=== PATIENT | male | born 1990 | race American Indian/Alaskan Native ===

== ENCOUNTER 2018-09-04 19:22 | Inpatient (IN) | payer OTHER ==
[2018-09-04 19:58] VITALS: BMI 19.2
--- NOTE | 2018-09-04 20:12 | ED PDOC ---
Arrival/HPI - General Chief Complaint: Abdominal Pain Time Seen by Provider: 09/04/18 20:04 Historian: Patient - History of Present Illness Narrative History of Present Illness (Text): 09/04/18 20:12 Umer Arevalo is a 27 year old male, with no significant past medical history, who presents to the Emergency department complaining of abdominal pain. Patient states he has been experiencing intermittent, throbbing, RLQ pain for the past 2 days. Patient also reports some nausea initially, but denies any today. Patient also denies any fever, chills, chest pain, shortness of breath, vomiting, diarrhea, urinary symptoms, back pain, neck pain, headache, dizziness, or any other complaints. Symptom Onset: Gradual Symptom Course: Unchanged Activities at Onset: Light Context: Home Past Medical History - Provider Review Nursing Documentation Reviewed: Yes - Psychiatric Hx Psychophysiologic Disorder: No Hx Substance Use: No - Anesthesia Hx Anesthesia: Yes Family/Social History - Physician Review Nursing Documentation Reviewed: Yes Family/Social History: Unknown Family HX Smoking Status: Never Smoked Hx Alcohol Use: No Hx Substance Use: No Allergies/Home Meds Allergies/Adverse Reactions: Allergies No Known Allergies Allergy (Verified 09/04/18 20:00) Home Medications: Home Meds Medication Instructions Recorded Confirmed No Known Home Med 09/04/18 09/04/18 Review of Systems - Physician Review All systems were reviewed & negative as marked: Yes - Review of Systems Constitutional: Normal. absent: Fevers Eyes: Normal ENT: Normal Respiratory: Normal. absent: SOB, Cough Cardiovascular: Normal. absent: Chest Pain Gastrointestinal: Abdominal Pain, Nausea. absent: Diarrhea, Vomiting Genitourinary Male: Normal. absent: Dysuria, Hematuria, Urinary Output Changes Musculoskeletal: Normal. absent: Back Pain, Neck Pain Skin: Normal. absent: Rash Neurological: Normal. absent: Headache, Dizziness Endocrine: Normal Hemo/Lymphatic: Normal Psychiatric: Normal Physical Exam Vital Signs Reviewed: Yes Temperature: Afebrile Blood Pressure: Normal Pulse: Regular Respiratory Rate: Normal Appearance: Positive for: Well-Appearing, Non-Toxic, Comfortable Pain Distress: None Mental Status: Positive for: Alert and Oriented X 3 - Systems Exam Head: Present: Atraumatic, Normocephalic Pupils: Present: PERRL Extroacular Muscles: Present: EOMI Conjunctiva: Present: Normal Mouth: Present: Moist Mucous Membranes Neck: Present: Normal Range of Motion Respiratory/Chest: Present: Clear to Auscultation, Good Air Exchange. No: Respiratory Distress, Accessory Muscle Use Cardiovascular: Present: Regular Rate and Rhythm, Normal S1, S2. No: Murmurs Abdomen: Present: Tenderness (RLQ tenderness). No: Distention, Peritoneal Signs Back: Present: Normal Inspection Upper Extremity: Present: Normal Inspection. No: Cyanosis, Edema Lower Extremity: Present: Normal Inspection. No: Edema Neurological: Present: GCS=15, CN II-XII Intact, Speech Normal Skin: Present: Warm, Dry, Normal Color. No: Rashes Psychiatric: Present: Alert, Oriented x 3, Normal Insight, Normal Concentration Medical Decision Making ED Course and Treatment: 09/04/18 20:12 Impression: 27 year old male complaining of intermittent RLQ pain for 2 days. Plan: -- CT Abdomen and Pelvis with IV contrast -- Labs, lipase -- Urinalysis -- IV fluids -- Reassess and disposition Progress Notes: 09/04/18 21:45 CT Abdomen and Pelvis: LUNG BASES: The lung bases appear clear. No pleural effusions are seen. LIVER: Unremarkable. GALLBLADDER AND BILE DUCTS: The gallbladder appears within normal limits. No radioopaque gallstones are seen. No biliary ductal dilatation is evident. PANCREAS: Unremarkable. SPLEEN: Unremarkable. ADRENAL GLANDS: Unremarkable. KIDNEYS, URETERS, AND BLADDER: The kidneys appear within normal limits. There is no hydronephrosis or hydroureter. No urinary calculi are seen. The urinary bladder is normal in size and configuration. STOMACH AND BOWEL: Unremarkable appearance of the stomach. No evidence of bowel obstruction. No evidence suggesting enteritis. There is marked mucosal edematous wall thickening of the ascending colon compatible with severe colitis. Infectious or inflammatory etiologies are thought most likely. APPENDIX: The appendix is not identified with certainty. PERITONEUM: No free fluid. No free air. LYMPH NODES: No lymphadenopathy is evident. REPRODUCTIVE: Unremarkable as visualized. VASCULATURE: No evidence of abdominal aortic aneurysm. BONES: No aggressive appearing osseous lesion. No acute osseous pathology evident. IMPRESSION: 1. Evidence of severe colitis involving the ascending colon. 2. The appendix was not identified with certainty. Electronically signed on Sep 04, 2018 9:39:55 PM EST by: Paulo Menjivar M.D., ITA Certified By ABR & CBCCT Fellowship Trained MRI and CT Specialist 09/04/18 21:[address] Quiroz, who is aware and agrees with plan. Accepts pt in to his service. Pt will go to [facility] observation for abdominal pain and colitis. cmo & president notified. Requests Dr. Ariza/ on consult. 09/04/18 22:01 Case discussed with surgical forceps fabricator strand and binder controller, who is aware and will evaluate pt in ED. Case discussed with electromedical equipment technician strand and binder controller, who is aware and agrees with plan. - Lab Interpretations I have reviewed the lab results: Yes - RAD Interpretation Car Clerk Pullman: Radiologist - Scribe Statement The provider has reviewed the documentation as recorded by the Scribe Josy Mario Provider Scribe Attestation: All medical record entries made by the Scribe were at my direction and personally dictated by me. I have reviewed the chart and agree that the record accurately reflects my personal performance of the history, physical exam, medic al decision making, and the department course for this patient. I have also personally directed, reviewed, and agree with the discharge instructions and disposition. Disposition/Present on Arrival - Present on Arrival Any Indicators Present on Arrival: No History of DVT/PE: No History of Uncontrolled Diabetes: No Urinary Catheter: No History of Decub. Ulcer: No History Surgical Site Infection Following: None - Disposition Have Diagnosis and Disposition been Completed?: Yes Diagnosis: Abdominal pain, Colitis Disposition: HOSPITALIZED Disposition Time: 21:57 Patient Problems: Current Active Problems Problem Status Onset Abdominal pain Acute Colitis Acute Condition: STABLE
[2018-09-04] MEDS ORDERED: Sodium Chloride 0.9% 1,000 ML IV STA ×2 (20:27→22:01)
[2018-09-04 20:37] LABS: HEMOGLOBIN 13.4 g/dL (14.0-18.0); MEAN CORPUSCULAR HEMOGLOBIN 23.3 pg (25.0-35.0); MEAN CORPUSCULAR HGB CONC 33.3 g/dl (31.0-37.0); MEAN PLATELET VOLUME 10.5 fl (7.0-11.0); RBC 5.76 {null, 10^6/uL} (3.5-6.1); RED CELL DISTRIBUTION WIDTH 14.2 % (11.5-14.5)
[2018-09-04 20:47] LABS: ALB/GLOB RATIO 1.1 (1.1-1.8); ALBUMIN 4.8 g/dL (3.0-4.8); ALT/SGPT 6 U/L (7-56); AST/SGOT 22 U/L (17-59); BLOOD UREA NITROGEN 15 mg/dL (7-21); CALCIUM 9.7 mg/dL (8.4-10.5); GFR NON-AFRICAN AMERICAN > 60; LIPASE 66 U/L (23-300)
[2018-09-04] MEDS ORDERED: Iohexol 350 MG/100 ML VIAL ONE (20:53)
[2018-09-04] MEDS ORDERED: metroNIDAZOLE IV 500 mg/100 ml 500 MG/100 ML BAG IV STA (21:48)
[2018-09-04] MEDS ORDERED: cefTRIAXone 1 gm 1 GM/100 ML BAG IV STA (21:48)
--- NOTE | 2018-09-04 23:31 | CP.PCM.CON ---
History of Present Illness - History of Present Illness History of Present Illness: 27M with no significant past medical history presents to [facility] ED with complaints of abdominal pain. Patient states sudden onset of abdominal pain approximately 2 days ago. At which time he states he rated the pain as an 8/10 and it was located along lower abdominal region. Patient states pain lessened as time went by. Reports he initially had nausea but now it is resolved. Patent reports eating [employer] and ramen noodles today with no exacerbation of pain. He denies fever/chills, chest pain, shortness of breath, nausea/vomiting, dysuria. Denies sick contacts. Review of vitals is normal. PMHx: none PSurgHx: none Allergies: NKDA Soc Hx: Denies smoking. Drinks wine every other weekend. No illicit drug use. Review of Systems - Review of Systems All systems: reviewed and no additional remarkable complaints except Review of Systems: except as stated in HPI Past Patient History - Past Social History Smoking Status: Never Smoked - PSYCHIATRIC Hx Psychophysiologic Disorder: No Hx Substance Use: No - SURGICAL HISTORY Hx Surgeries: No - ANESTHESIA Hx Anesthesia: Yes Meds Allergies/Adverse Reactions: Allergies Allergy/AdvReac Type Severity Reaction Status Date / Time No Known Allergies Allergy Verified 09/04/18 20:00 - Medications Medications: Current Medications Sodium Chloride (Sodium Chloride 0.9%) 1,000 mls @ 100 mls/hr IV .Q10H STA Stop: 09/05/18 08:00 Last Admin: 09/04/18 22:22 Dose: 100 mls/hr Physical Exam - Constitutional Appears: No Acute Distress - Head Exam Head Exam: NORMOCEPHALIC - Eye Exam Eye Exam: EOMI, Normal appearance - ENT Exam ENT Exam: Mucous Membranes Moist - Respiratory Exam Respiratory Exam: NORMAL BREATHING PATTERN - Cardiovascular Exam Cardiovascular Exam: +S1, +S2. absent: Tachycardia - GI/Abdominal Exam GI & Abdominal Exam: Soft, Tenderness. absent: Distended, Firm, Guarding Additional comments: No peritoneal signs RUQ tenderness RLQ tenderness Generalized lower abdominal tenderness +rebound tenderness - Neurological Exam Neurological exam: Alert, Oriented x3 - Psychiatric Exam Psychiatric exam: Normal Mood - Skin Skin Exam: Dry, Intact, Warm Results - Vital Signs Recent Vital Signs: Last Vital Signs Temp 97.9 F 09/04/18 20:22 Pulse 78 09/04/18 20:22 Resp 18 09/04/18 20:22 BP 126/62 09/04/18 20:22 Pulse Ox 100 09/04/18 20:22 - Labs Result Diagrams: 09/05/18 07:00 09/05/18 07:00 Labs: Laboratory Results - last 24 hr 09/04/18 09/04/18 20:08 20:08 WBC 8.0 RBC 5.76 Hgb 13.4 L Hct 40.3 L MCV 70.0 L MCH 23.3 L MCHC 33.3 RDW 14.2 Plt Count 203 MPV 10.5 Sodium 139 Potassium 3.8 Chloride 97 L Carbon Dioxide 30 Anion Gap 16 BUN 15 Creatinine 0.8 Est GFR ( Amer) > 60 Est GFR (Non-Af Amer) > 60 Random Glucose 126 H Calcium 9.7 Total Bilirubin 1.3 AST 22 ALT 6 L Alkaline Phosphatase 42 Total Protein 9.0 H Albumin 4.8 Globulin 4.2 Albumin/Globulin Ratio 1.1 Lipase 66 Assessment & Plan - Assessment and Plan (Free Text) Assessment: 27M with abdominal pain x2 days likely 2/2 appendicitis vs colitis Plan: NPO IVF ABx Analgesic prn Anti-emetic prn Alvardo Score 5/10, possible appendicitis Recommend CT Abd & Pelvis w/ PO contrast to r/o appendicitis as it is difficult to evaluate small and large bowel with lack of PO contrast Will follow Further recs per Dr. Hector
[2018-09-04 23:48] LABS: PH,URINE 7.5 (4.7-8.0); URINE BILIRUBIN NEGATIVE (NEGATIVE); URINE BLOOD MODERATE (NEGATIVE); URINE GLUCOSE (UA) NEGATIVE (NEGATIVE); URINE LEUKOCYTE ESTERASE NEGATIVE Leu/uL (NEGATIVE); URINE PROTEIN NEGATIVE mg/dL (<30 mg/dL)
[2018-09-04 23:51] LABS: URINE APPEARANCE CLEAR (CLEAR); URINE COLOR YELLOW (YELLOW)
[2018-09-04] MEDS ORDERED: Morphine 2 mg/ml ISec IVP PRN (23:55)
--- NOTE | 2018-09-05 | CP.PCM.HP ---
History of Present Illness - History of Present Illness History of Present Illness: H&P for Dr. Quiroz's service 27 yo male with no past medical history presents with 2 days lower right quadrant abd pain. Patient describes the pain as crampy pain worse on onset 2 days ago. Since then the pain has been intermittent, worse with movement. He denies any abnormal food consumption or pain with eating. He did not taking any over the counter medications to help with the pain. He denies fevers, chills, n/v, diarrhea, constipation, dysuria, hematuria, chest pain, sob. 12 point ROS negative except as stated PMH: denies PSH: denies social history: denies smoking, or illicit drug use, social alcohol use allergy: nkda home meds: none family history: Mother HTN Present on Admission - Present on Admission Any Indicators Present on Admission: No Review of Systems - Review of Systems All systems: reviewed and no additional remarkable complaints except Past Patient History - Past Social History Smoking Status: Never Smoked - PSYCHIATRIC Hx Psychophysiologic Disorder: No Hx Substance Use: No - SURGICAL HISTORY Hx Surgeries: No - ANESTHESIA Hx Anesthesia: Yes Meds Allergies/Adverse Reactions: Allergies Allergy/AdvReac Type Severity Reaction Status Date / Time No Known Allergies Allergy Verified 09/04/18 20:00 Physical Exam - Constitutional Appears: Well, No Acute Distress - Head Exam Head Exam: ATRAUMATIC, NORMAL INSPECTION, NORMOCEPHALIC - Eye Exam Eye Exam: EOMI, Normal appearance - ENT Exam ENT Exam: Mucous Membranes Moist, Normal Exam. absent: Mucous Membranes Dry - Neck Exam Neck exam: Positive for: Full Rom, Normal Inspection. Negative for: Tenderness - Respiratory Exam Respiratory Exam: Clear to Auscultation Bilateral, NORMAL BREATHING PATTERN. absent: Accessory Muscle Use, Chest Wall Tenderness, Decreased Breath Sounds, Rales, Rhonchi, Wheezes, Respiratory Distress - Cardiovascular Exam Cardiovascular Exam: REGULAR RHYTHM, RRR, +S1, +S2. absent: Bradycardia, Tachycardia, Diastolic murmur, Systolic Murmur - GI/Abdominal Exam GI & Abdominal Exam: Guarding (mild RLQ), Normal Bowel Sounds, Soft, Tenderness (RLQ). absent: Distended, Firm, Hernia, Mass, Organomegaly, Rebound - Extremities Exam Extremities exam: Positive for: full ROM, normal inspection. Negative for: calf tenderness, pedal edema, tenderness - Back Exam Back exam: NORMAL INSPECTION. absent: CVA tenderness (L), CVA tenderness (R), paraspinal tenderness, vertebral tenderness - Neurological Exam Neurological exam: Alert, CN II-XII Intact, Oriented x3 - Psychiatric Exam Psychiatric exam: Normal Affect, Normal Mood - Skin Skin Exam: Dry, Intact, Normal Color, Warm Results - Vital Signs Recent Vital Signs: Last Vital Signs Temp 97.9 F 09/04/18 20:22 Pulse 78 09/04/18 20:22 Resp 18 09/04/18 20:22 BP 126/62 09/04/18 20:22 Pulse Ox 100 09/04/18 20:22 - Labs Result Diagrams: 09/04/18 20:08 09/04/18 20:08 Labs: Laboratory Results - last 24 hr 09/04/18 09/04/18 09/04/18 20:08 20:08 23:02 WBC 8.0 RBC 5.76 Hgb 13.4 L Hct 40.3 L MCV 70.0 L MCH 23.3 L MCHC 33.3 RDW 14.2 Plt Count 203 MPV 10.5 Sodium 139 Potassium 3.8 Chloride 97 L Carbon Dioxide 30 Anion Gap 16 BUN 15 Creatinine 0.8 Est GFR ( Amer) > 60 Est GFR (Non-Af Amer) > 60 Random Glucose 126 H Calcium 9.7 Total Bilirubin 1.3 AST 22 ALT 6 L Alkaline Phosphatase 42 Total Protein 9.0 H Albumin 4.8 Globulin 4.2 Albumin/Globulin Ratio 1.1 Lipase 66 Urine Color Yellow Urine Appearance Clear Urine pH 7.5 Ur Specific Witter <= 1.005 Urine Protein Negative Urine Glucose (UA) Negative Urine Ketones Negative Urine Blood Moderate H Urine Nitrate Negative Urine Bilirubin Negative Urine Urobilinogen 1.0 H Ur Leukocyte Esterase Negative Assessment & Plan - Assessment and Plan (Free Text) Assessment: 27 yo male with no past medical history presents with 2 days lower right quadrant abd pain. Plan: abd pain - possibly due to colitis vs appendicitis - CT abd/pel with IV contrast showed Evidence of severe colitis involving the ascending colon. The appendix was not identified with certainty. - ESR, CRP - follow up blood cultures - abd Ultrasound - zosyn IV abx - npo - continue IVF NS @100 - GI consulted, Dr. Ariza - surgical consult - GI ppx protonix low hemaglobin - repeat CBC in AM - stool for occult blood case discussed with Dr. Quiroz
[2018-09-05 00:20] LABS: URINE BACTERIA FEW /hpf; URINE EPITHELIAL CELLS 0 - 2 /hpf (0-5); URINE WBC 0 - 2 /hpf (0-6)
[2018-09-05] MEDS ORDERED: Barium Sulfate Susp 2.1% w/v, 2.0% w/w 450 mL Bottle PO ONE (00:36)
[2018-09-05 07:30] LABS: BASO # 0.02 {null, K/mm3} (0.0-2.0); BASO % 0.3 % (0.0-3.0); EOS # 0.2 (0.0-0.7); HEMOGLOBIN 11.8 g/dL (14.0-18.0); LYMPH # 1.2 (1.2-3.4); LYMPH % 20.8 % (22.0-35.0); MEAN CELL VOLUME 70.3 fl (80.0-105.0); MEAN CORPUSCULAR HEMOGLOBIN 22.5 pg (25.0-35.0); MEAN PLATELET VOLUME 10.2 fl (7.0-11.0); MONO # 0.8 (0.1-0.6); MONO % 13.5 % (1.0-6.0); RBC 5.25 {null, 10^6/uL} (3.5-6.1); RED CELL DISTRIBUTION WIDTH 14.1 % (11.5-14.5); WHITE BLOOD COUNT 5.8 {null, 10^3/uL} (4.5-11.0)
[2018-09-05 07:34] LABS: ALBUMIN 3.9 g/dL (3.0-4.8); ALT/SGPT 10 U/L (7-56); AST/SGOT 22 U/L (17-59); BLOOD UREA NITROGEN 12 mg/dL (7-21); CALCIUM 8.9 mg/dL (8.4-10.5); GFR NON-AFRICAN AMERICAN > 60; INR 1.29; PARTIAL THROMBOPLASTIN TIME 29.8 Seconds (26.9-38.3); PROTHROMBIN TIME 14.6 SECONDS (9.4-12.5)
--- NOTE | 2018-09-05 08:41 | CT ---
Date of service: 09/04/2018 PROCEDURE: CT Abdomen and Pelvis with contrast HISTORY: right lower abdominal pain COMPARISON: None available. TECHNIQUE: Contrast dose: 100 mL Omnipaque 350 IV Radiation dose: Total exam DLP = 264.79 mGy-cm. This CT exam was performed using one or more of the following dose reduction techniques: Automated exposure control, adjustment of the mA and/or kV according to patient size, and/or use of iterative reconstruction technique. FINDINGS: LOWER THORAX: No visible consolidation, pleural effusion, or pneumothorax. LIVER: Unremarkable. GALLBLADDER AND BILE DUCTS: Unremarkable. PANCREAS: Unremarkable. SPLEEN: Unremarkable. ADRENALS: Unremarkable. KIDNEYS AND URETERS: The kidneys enhance symmetrically. No hydronephrosis or obstructing calculus identified. VASCULATURE: No aortic aneurysm. No atherosclerotic calcification or mural plaque present. BOWEL: Ingested debris within an incompletely distended stomach. Lack of oral contrast limits evaluation for bowel pathology. Bowel loops appear within normal limits of caliber without evidence of obstruction. Markedly thick-walled abnormal appearance of the right colon/cecum. APPENDIX: The appendix is not identified. PERITONEUM: No significant free fluid. No definite free air. LYMPH NODES: Mesenteric/pericecal adenopathy, difficult to assess due to lack of oral contrast and paucity of intra-abdominal/intrapelvic fat. BLADDER: Unremarkable. REPRODUCTIVE: Unremarkable. BONES: No acute osseous abnormality is detected. OTHER FINDINGS: None. IMPRESSION: Findings as described above appear consistent with a severe colitis involving the right colon. The appendix is not identified. Mesenteric/pericecal adenopathy. Additional findings as above. Preliminary impression was provided by [employer].
[2018-09-05 08:56] LABS: BILIRUBIN,DIRECT 0.2 mg/dL (0.0-0.4)
--- NOTE | 2018-09-05 11:05 | CT ---
PROCEDURE: CT Abdomen and Pelvis without IV contrast. HISTORY: r/o appendicitis COMPARISON: CT abdomen and pelvis with contrast performed 09/04/18 TECHNIQUE: Contiguous axial images of the abdomen and pelvis. Oral contrast was administered. No IV contrast given. Coronal and Sagittal reformats generated and reviewed. Radiation dose: Total exam DLP = 263.55 mGy-cm. This CT exam was performed using one or more of the following dose reduction techniques: Automated exposure control, adjustment of the mA and/or kV according to patient size, and/or use of iterative reconstruction technique. FINDINGS: There is limited evaluation of the solid organs without the administration of IV contrast. LOWER THORAX: No visible consolidation, pleural effusion, or pneumothorax. Visualized portions of the heart appear within normal limits of size. LIVER: Unremarkable unenhanced appearance. GALLBLADDER AND BILE DUCTS: Unremarkable unenhanced appearance. PANCREAS: Unremarkable unenhanced appearance. SPLEEN: Unremarkable unenhanced appearance. ADRENALS: Unremarkable unenhanced appearance. KIDNEYS AND URETERS: No hydronephrosis or obstructing renal calculus. BLADDER: Distended urinary bladder, otherwise grossly unremarkable. REPRODUCTIVE: Unremarkable. APPENDIX: The presumed appendix appears within normal limits of caliber. BOWEL: The stomach is nondistended. Bowel loops appear within normal limits of caliber without evidence of obstruction. Markedly thick-walled abnormal appearance of the right colon/cecum. PERITONEUM: No significant free fluid. No definite free air. LYMPH NODES: Mesenteric/pericecal adenopathy, difficult to assess due to paucity of intra-abdominal/intrapelvic fat. VASCULATURE: No aortic aneurysm. BONES: No acute osseous abnormality is detected. OTHER FINDINGS: None. IMPRESSION: Findings as described above appear consistent with a severe colitis involving the right colon. The presumed appendix appears within normal limits of caliber. Mesenteric/pericecal adenopathy, difficult to assess due to paucity of intra-abdominal/intrapelvic fat.
--- NOTE | 2018-09-05 12:00 | CON ---
DATE OF CONSULTATION: 09/05/2018 GASTROENTEROLOGY CONSULTATION REQUESTING PHYSICIAN: Dr. Quiroz. REASON FOR CONSULTATION: I have been asked to see this 27-year-old male, who comes to the hospital with 2 days of right lower quadrant abdominal pain described as crampy. The pain is steadily improved since his hospitalization. He describes the pain as colicky in nature and worse with certain movements. He denies any ingestion of unusual foods, recent travel illicit drug use. He did have an episode of nausea and vomiting on the first day of abdominal pain, but denies any diarrhea. He denies rectal bleeding. CT scan of the abdomen and pelvis performed in the emergency room revealed mural thickening of the ascending colon with some pericolonic mesenteric streaking. PAST MEDICAL HISTORY: Unremarkable. PAST SURGICAL HISTORY: Unremarkable. SOCIAL HISTORY: He denies cigarette smoking or alcohol use. FAMILY HISTORY: Noncontributory. REVIEW OF SYSTEMS: Fourteen-point review of systems is notable for right lower quadrant abdominal pain, nausea, and vomiting. MEDICATIONS AT HOME: None. PHYSICAL EXAMINATION: GENERAL: Well-developed male, lying in bed, in no distress. VITAL SIGNS: Reveal a temperature of 97.7, blood pressure 122/65, heart rate of 70. HEENT: Reveal sclerae to be white. Conjunctivae pink. NECK: Supple. CHEST: Lungs are clear. HEART: Exam reveals regular rate and rhythm. ABDOMEN: Soft. Mild right lower quadrant tenderness. No rebound or guarding. EXTREMITIES: Show no edema. LABORATORY DATA: Reveal white blood cell count 5.8, hemoglobin 11.8, platelet count of 181,000, sed rate 28. Chemistries reveal normal electrolytes. IMPRESSION: A 27-year-old male with 2 days of right lower quadrant abdominal pain associated with an episode of nausea, vomiting. No diarrhea. No recent travel with a CT scan of the abdomen and pelvis showing mural thickening of the ascending colon. This appears to be a right-sided colitis. Clinically, the patient does not appear toxic. RECOMMENDATIONS: We will start the patient on clear liquid diet. Clinically, he is improving. If tolerated, he can be advanced to a low-residue diet, would continue broad-spectrum antibiotics for now. If the patient continues to improve, he can be discharged home with outpatient followup. Michael Ariza MD [facility] # [id number]
[2018-09-05] MEDS: Piperacillin/Tazobact 3.375 gm 100 ML IVPB SCH ×2 (14:59→23:17)
[2018-09-05] MEDS: Lactated Ringer's 1,000 ML IV SCH (18:48)
[2018-09-05] MEDS: metroNIDAZOLE IV 500 mg/100 ml 500 MG/100 ML BAG IVPB SCH (21:53)
[2018-09-05 22:26] LABS: BARBITURATES, UR NEGATIVE (NEGATIVE); BENZODIAZEPINES, UR NEGATIVE (NEGATIVE); OPIATES, UR NEGATIVE (NEGATIVE); PHENCYCLIDINE, UR NEGATIVE (NEGATIVE)
--- NOTE | 2018-09-06 05:05 | PN ---
DATE: 09/05/2018 LOCATION: The patient is seen in room 566, bed 1. SUBJECTIVE: The patient was seen with the patient's mother. According to the patient's nurses, the nurses have found the patient to have bug on his arms and the patient is isolated at present for a suspicious of a bedbug. The patient was seen and examined with all the personal protective equipment with head covering mask, gloves and protective gowns. The patient's mother is at bedside. The patient is seen lying in the bed. Abdominal pain has subsided. PHYSICAL EXAMINATION: VITAL SIGNS: T-max 97.8, heart rate 70, blood pressure 109/71, 122/65, respirations 18, O2 sat 97% to 100%. HEENT: Head: Normocephalic, atraumatic. HEENT examination shows pinkish pale conjunctivae. Anicteric sclerae. No oropharyngeal lesion. NECK: No neck rigidity. CHEST: Kyphosis. LUNGS: No crackles, rales or wheezing. CARDIOVASCULAR: S1, S2, regular rhythm. Unable to appreciate any murmur, gallop or rub. ABDOMEN: Soft. Positive bowel sound, positive right lower quadrant, suprapubic, right upper quadrant tenderness, right periumbilical tenderness. No costovertebral angle tenderness. GENITALIA: Male. RECTAL: Deferred. EXTREMITIES: No pitting edema, no calf tenderness, no Homans' sign. NEUROLOGICAL: The patient is alert, awake, oriented x3. Cranial nerves II through XII intact. Gait examination is not tested. VASCULAR: Palpable pulses. MUSCULOSKELETAL: Body mass index of 19.3. DIAGNOSTICS: CBC shows a hemoglobin and hematocrit 11.8 and 36.9. CMP shows a C-reactive protein of 84.2. Urine drug screen negative. IMPRESSION: 1. Right lower quadrant abdominal pain. 2. Questionable appendicitis versus possible colitis. 3. Microcytic anemia. 4. Mildly elevated erythrocyte sedimentation rate. 5. Elevated C-reactive protein of 84. 6. Microscopic hematuria. 7. Bacteriuria. 8. Cecal and right colonic severe colitis with mesenteric and pericecal adenopathy. PLAN: At this time, the patient has been ordered repeat labs for the morning. The patient seen by ethylbenzene oxidizer and Surgery. Their recommendations reviewed. The patient has been ordered repeat labs for the morning. Urine drug screen ordered. Current consultation, Surgery and Gastroenterology. The patient has been ordered calamine lotion for his possible bed bugs noted on the body by the nurses. The patient is started on Flagyl 500 IV every 8 hours, Ringer's lactate at 100 mL an hour, morphine 1 mg IV every 6 hours p.r.n., Protonix 40 IV every 12 hours, Zosyn 3.375 g IV every 8 hours, Protonix 40 IV every 12 hours, Tylenol 650 mg p.o. suppository every 6 hours p.r.n., Zofran 4 mg IV every 4 hours p.r.n. The patient has been ordered an abdominal ultrasound by Neurology. The patient is started on liquid diet by Gastroenterology. The patient has been ordered GI and DVT prophylaxis. Lab data for anemia has been ordered. The patient has been updated about his condition, diagnosis at length. The patient's mother is present in the room. The patient's mother is also aware of the patient's condition, diagnosis, test results and recommendation by all the physicians explained to the patient at length and all questions concerned answered. Dictated and electronically signed, not read. Sarath Quiroz MD
[2018-09-06] MEDS: metroNIDAZOLE IV 500 mg/100 ml 500 MG/100 ML BAG IVPB SCH ×3 (05:52→21:16)
[2018-09-06] MEDS: Piperacillin/Tazobact 3.375 gm 100 ML IVPB SCH ×3 (06:46→22:24)
[2018-09-06 07:44] LABS: BASO # 0.02 {null, K/mm3} (0.0-2.0); BASO % 0.5 % (0.0-3.0); EOS # 0.2 (0.0-0.7); EOS % 5.6 % (1.5-5.0); HEMOGLOBIN 11.8 g/dL (14.0-18.0); LYMPH # 0.9 (1.2-3.4); LYMPH % 21.8 % (22.0-35.0); MEAN CELL VOLUME 70.7 fl (80.0-105.0); MEAN CORPUSCULAR HEMOGLOBIN 22.8 pg (25.0-35.0); MEAN CORPUSCULAR HGB CONC 32.2 g/dl (31.0-37.0); MEAN PLATELET VOLUME 10.5 fl (7.0-11.0); MONO # 0.7 (0.1-0.6); MONO % 15.1 % (1.0-6.0); RBC 5.18 {null, 10^6/uL} (3.5-6.1); RED CELL DISTRIBUTION WIDTH 14.2 % (11.5-14.5); WHITE BLOOD COUNT 4.3 {null, 10^3/uL} (4.5-11.0)
[2018-09-06 07:53] LABS: IRON 96 ug/dL (45-180)
[2018-09-06 08:02] LABS: % IRON SATURATION 33 % (20-55); TOTAL IRON BINDING CAPACITY 289 ug/dL (261-462)
[2018-09-06 08:10] LABS: ALB/GLOB RATIO 1.1 (1.1-1.8); ALBUMIN 3.9 g/dL (3.0-4.8); ALT/SGPT 13 U/L (7-56); AST/SGOT 24 U/L (17-59); BILIRUBIN,DIRECT 0.1 mg/dL (0.0-0.4); BLOOD UREA NITROGEN 7 mg/dL (7-21); CALCIUM 9.2 mg/dL (8.4-10.5); GFR NON-AFRICAN AMERICAN > 60
[2018-09-06] MEDS: Calamine-Zinc Oxide Lotion (120 ml) TOP SCH (10:00)
--- NOTE | 2018-09-06 12:16 | PN ---
DATE: 09/06/2018 SUBJECTIVE: The patient was found to have bed bugs. He is in isolation. He states that he feels better. The abdominal pain is much less. He is tolerating clear liquid diet. He denies any nausea, vomiting. OBJECTIVE: VITAL SIGNS: Reveal temperature of 97.8, blood pressure 104/65, heart rate of 62. HEENT: Reveal sclerae to be white. Conjunctivae pink. NECK: Supple. CHEST: Lungs are clear. HEART: Reveals a regular rate and rhythm. ABDOMEN: Soft. Mild right lower quadrant tenderness. No rebound, no guarding. EXTREMITIES: Show no edema. LABORATORY DATA: Reveal white blood cell count 4.3, hemoglobin 11.8. Chemistries reveal normal electrolytes. IMPRESSION: Right-sided colitis, the etiology unclear. RECOMMENDATIONS: 1. We will advance the patient to a soft bland diet. If tolerated, he can be discharged home with outpatient followup. 2. Check HIV antibody. 3. Continue close followup. Michael Ariza MD
--- NOTE | 2018-09-06 12:28 | US ---
HISTORY: abd pain LRQ COMPARISON: CT abdomen pelvis performed 09/05/18 without IV contrast TECHNIQUE: Sonographic evaluation of the abdomen. FINDINGS: LIVER: Measures 13.6 cm in sagittal dimension. Echogenic liver may be seen in setting of hepatic parenchymal disease or fatty infiltration. No focal hepatic mass identified. The main portal vein appears patent with normal directional flow. No intrahepatic bile duct dilatation. GALLBLADDER: No gallstones. No gallbladder wall thickening. Negative sonographic Harmon's sign as assessed by the hematology technician. COMMON BILE DUCT: Measures 5 mm. PANCREAS: Not well visualized. RIGHT KIDNEY: Measures 12.4 x 4.2 x 6.0 cm. No obstructing calculus or hydronephrosis identified. LEFT KIDNEY: Measures 10.8 x 6.8 x 6.1 cm. No obstructing calculus or hydronephrosis identified. SPLEEN: Measures approximately 8.7 cm. AORTA: Limited views appear unremarkable. IVC: Limited views appear unremarkable. OTHER FINDINGS: None. IMPRESSION: Echogenic liver may be seen in setting of hepatic parenchymal disease or fatty infiltration.
[2018-09-06 13:48] LABS: FERRITIN 89.3 ng/mL
[2018-09-06] MEDS: Lactated Ringer's 1,000 ML IV SCH (22:25)
--- NOTE | 2018-09-07 03:03 | PN ---
DATE: 09/06/2018 LOCATION: The patient was seen in room 566, bed 1. SUBJECTIVE: The patient was still in quarantine isolation room due to possible bed bug infestation, bed bugs noted on the patient's body. According to the patient's nurse, Hussein, the patient was given complete bed bug infestation treatment with a complete bath. The patient's clothing has been sealed in contaminated bag which was placed in the patient's room. The patient is presently in isolation room. The patient is seen, examined. The patient is seen lying in the bed. The patient is comfortable. The patient stated that he tolerated the diet ordered by the Gastroenterology during the lunch. PHYSICAL EXAMINATION: VITAL SIGNS: T-max 97.8; heart rate 59, 78, 74, 62, 87; blood pressure 121/66, 122/65, 109/71, 104/65, 112/66; respirations 20; O2 sat 100%. HEENT: The patient's head examination is normocephalic, atraumatic. HEENT examination shows pinkish pale conjunctivae. Anicteric sclerae. No oropharyngeal lesion. No neck rigidity. CHEST: Symmetrical. LUNG: Shows no audible crackle, rales, or wheezing. CARDIOVASCULAR: S1, S2. Regular rhythm. No audible murmur, gallop, or rub. ABDOMEN: Soft. Positive bowel sounds. Mild right upper quadrant tenderness and right periumbilical tenderness. Decreased right lower quadrant tenderness. No hepatosplenomegaly palpable. GENITALIA: Male. RECTAL: Deferred. EXTREMITIES: Show no pitting edema, no calf tenderness, no Simran's signs. MUSCULOSKELETAL: Shows body mass index of 19.3. NEUROLOGIC: Cranial nerves II through XII intact. Gait examination is independent. DIAGNOSTICS: On 09/06/2018, WBC 4.3, hemoglobin and hematocrit 11.8 and 36.6, MCV 70.7, platelet 197. Chemistry is within normal limit except for total bili of 1.4. Rest of the LFTs are normal. Urine drug screen is negative. Blood cultures no growth. IMPRESSION: 1. Right-sided cecal and right ascending colon colitis, etiology unclear. 2. Leukopenia. 3. Microcytic anemia. 4. Lymphopenia. 5. Monocytosis. 6. Mildly elevated erythrocyte sedimentation rate of 28. 7. Elevated C-reactive protein of 85. 8. Microscopic hematuria, pyuria, bacteriuria. 9. Right colonic, right cecal severe colitis. 10. Mesenteric pericecal adenopathy. 11. Hepatic steatosis and echogenic liver with fatty infiltration and hepatic parenchymal disease. PLAN: At this time, the patient is started on altered GI hepatic diet. The patient has been ordered repeat labs for the morning. The patient has been ordered HIV, hemoglobin electrophoresis, sickle cell EBC. CURRENT CONSULTATION: Gastroenterology and Surgery. CURRENT MEDICATIONS: Calamine lotion, Flagyl 500 mg IV every 8 hours, Ringer's lactate 100 mL an hour, morphine 1 mg IV every 6 hours p.r.n., Protonix 40 mg IV every 12 hours, Tylenol suppository p.o. every 6 hours p.r.n., Zosyn 3.375 IV every 8 hours, Zofran 4 IV every 4 hours. Incentive spirometry, out of bed to chair has been ordered. The patient has been updated about his condition, diagnosis, test results, recommendation by all the physicians involved in the care of the patient. The patient is awaiting further GI evaluation, recommendation, and clearance for discharge. The patient is also advised outpatient close followup with the Medicine and Gastroenterology, further investigation and diagnostic therapeutic intervention which the patient acknowledged to understand. Dictated and electronically signed, not read. Sarath Quiroz MD
[2018-09-07] MEDS: metroNIDAZOLE IV 500 mg/100 ml 500 MG/100 ML BAG IVPB SCH ×3 (05:42→21:14)
[2018-09-07] MEDS: Piperacillin/Tazobact 3.375 gm 100 ML IVPB SCH ×3 (06:55→22:27)
[2018-09-07 08:23] LABS: BASO # 0.02 {null, K/mm3} (0.0-2.0); BASO % 0.5 % (0.0-3.0); EOS # 0.3 (0.0-0.7); EOS % 6.7 % (1.5-5.0); HEMOGLOBIN 11.6 g/dL (14.0-18.0); LYMPH # 1.1 (1.2-3.4); LYMPH % 27.5 % (22.0-35.0); MEAN CELL VOLUME 70.1 fl (80.0-105.0); MEAN CORPUSCULAR HEMOGLOBIN 22.7 pg (25.0-35.0); MEAN CORPUSCULAR HGB CONC 32.4 g/dl (31.0-37.0); MEAN PLATELET VOLUME 10.2 fl (7.0-11.0); MONO # 0.5 (0.1-0.6); MONO % 11.8 % (1.0-6.0); RBC 5.11 {null, 10^6/uL} (3.5-6.1); WHITE BLOOD COUNT 3.9 {null, 10^3/uL} (4.5-11.0)
[2018-09-07 08:26] LABS: HEPATITIS B SURFACE AG Negative (NEGATIVE)
[2018-09-07 08:32] LABS: HEPATITIS A IGM NEGATIVE (NEGATIVE); HEPATITIS B CORE AB NEGATIVE (NEGATIVE)
[2018-09-07 08:43] LABS: HEPATITIS C ANTIBODY NEGATIVE (NEGATIVE)
[2018-09-07 08:49] LABS: ALB/GLOB RATIO 1.1 (1.1-1.8); ALBUMIN 3.8 g/dL (3.0-4.8); ALT/SGPT 11 U/L (7-56); AST/SGOT 16 U/L (17-59); BILIRUBIN,DIRECT 0.2 mg/dL (0.0-0.4); BLOOD UREA NITROGEN 11 mg/dL (7-21); CALCIUM 9.1 mg/dL (8.4-10.5); GFR NON-AFRICAN AMERICAN > 60
[2018-09-07] MEDS: Calamine-Zinc Oxide Lotion (120 ml) TOP SCH (09:18)
[2018-09-07 10:32] LABS: MCH 23.3 pg (27.0-33.0); MCV 72.6 fL (80.0-100.0)
--- NOTE | 2018-09-07 13:21 | PN ---
DATE: 09/07/2018 SUBJECTIVE: The patient is walking around in his room comfortably. He is tolerating solid food. He denies any further right lower quadrant abdominal pain. He denies diarrhea. He denies nausea or vomiting. OBJECTIVE: VITAL SIGNS: Reveal temperature of 98.2, blood pressure 114/76, heart rate of 62. HEENT: Reveal sclerae to be white. Conjunctivae pink. NECK: Supple. CHEST: Reveal lungs to be clear. HEART: Reveals a regular rate and rhythm. ABDOMEN: Soft, nontender. No mass. EXTREMITIES: Show no edema. Laboratory data reveal white blood cell count 3.9, hemoglobin 11.6. Chemistries reveal normal electrolytes. Hepatitis serology is negative. IMPRESSION: This is a 27-year-old male admitted to the hospital with right lower quadrant pain, found to have mural thickening of the ascending colon consistent with colitis of the ascending colon. I suspect that this is a self-limited colitis. RECOMMENDATIONS: The patient can be discharged home with outpatient followup. He will need a elective colonoscopy. Michael Ariza MD
[2018-09-07 16:55] LABS: SICKLE CELL SCREEN Positive (Negative)
[2018-09-07 21:17] VITALS: RESP 18; O2SAT 100
--- NOTE | 2018-09-07 23:15 | PN ---
DATE: 09/07/2018 SUBJECTIVE: The patient is seen in room 566, bed 1. The patient is still in isolation because of the possible bed bugs noted on the patient's body. The patient is tolerating the diet ordered by Gastroenterology. PHYSICAL EXAMINATION: GENERAL: The patient is seen ambulating in the room VITAL SIGNS: T-max 98.2; heart rate 65, 62; blood pressure 31876; respiration 18; O2 sat 100%. HEENT: Head is normocephalic and atraumatic. Pinkish conjunctivae. Anicteric sclerae, dry oral mucosa. NECK: No neck rigidity. CHEST: Kyphosis. LUNGS: Shows no audible crackle, rales or wheezing. CARDIOVASCULAR: S1 and S2, regular rhythm. ABDOMEN: Soft. Positive bowel sounds. No right lower quadrant tenderness. No right periumbilical tenderness. No right upper quadrant tenderness. No costovertebral angle tenderness. GENITALIA: Male. RECTAL: Examination is deferred. EXTREMITIES: Shows no pitting edema, no calf tenderness, no Homans' sign. NEUROLOGIC: The patient is alert, awake, and oriented x3. Cranial nerves II through XII intact. Gait examination is independent. VASCULAR: Palpable pulses. DIAGNOSTIC DATA: On 09/07/2018, WBC 3.9, hemoglobin/hematocrit 11.6/35.8, MCV 70, and platelet 226. ESR is 28. Sickle cell screen is positive. Hemoglobin electrophoresis is pending. Sodium 140, potassium 4.9, chloride 105, CO2 of 29 anion gap 10, BUN 11, creatinine 0.9, GFR greater than 60, glucose 88, calcium 9.1, phosphorus 3.4, and magnesium 1.9. LFTs are within normal limits. The patient's urine drug screen was negative. Hepatitis A, B, C serologies are negative. HIV is pending. Blood cultures are negative. IMPRESSION AND PLAN: 1. Right cecal and right colonic colitis with markedly thickening of the right colon and cecum with mesenteric and pericecal adenopathy. 2. Severe right colonic and cecal colitis with mesenteric and pericecal adenopathy. 3. Hepatic echogenicity with fatty infiltration of the liver or hepatic parenchymal disease. 4. Leukopenia. 5. Microcytic anemia. 6. Sickle cell screen positive. 7. Mildly elevated erythrocyte sedimentation rate of 28. 8. Elevated C-reactive protein of greater than 84. 9. Microscopic hematuria and bacteriuria. 10. Right sided ascending colon and cecal colitis. 11. Possible bed bug infestation. Plan at this time, the patient is to be continued on IV antibiotics for one more day. The patient is to be continued on calamine lotion, Flagyl 500 mg IV every 8 hours, Ringer's lactate 100 mL per hour, morphine 1 mg IV every 6 hours p.r.n., Protonix 40 mg every 12 hours, Tylenol p.r.n., Zofran 4 mg IV every 4 hours p.r.n., and Zosyn 3.375 g IV every 8 hours. The patient is started on altered GI hepatic diet. The patient has not completed two meals of the diet. We will try to see if the patient is able to tolerate the diet completely today and possibly consider discharge later on today or early tomorrow. The patient updated about his condition, diagnosis, test results, recommendation at length and all questions concerned answered, which he acknowledged and understand. Dictated and electronically signed, not read. Sarath Quiroz MD
[2018-09-08] MEDS: metroNIDAZOLE IV 500 mg/100 ml 500 MG/100 ML BAG IVPB SCH ×2 (05:47→14:16)
[2018-09-08] MEDS: Piperacillin/Tazobact 3.375 gm 100 ML IVPB SCH (06:45)
[2018-09-08 08:34] VITALS: BP 119/80; PULSE 59; TEMP 98
--- NOTE | 2018-09-08 11:46 | CP.PCM.DIS ---
Provider - Provider Date of Admission: 09/07/18 21:33 Attending physician: Sarath Quiroz MD Primary care physician: NO FAMILY PROVIDER Consults: 09/04/18 21:59 Physician Consult Stat Comment: Consulting Provider: Michael Ariza Consulting Physician: Michael Ariza Reason for Consult: abdominal pain/colitis 09/04/18 23:26 General Surgery Consult Routine Comment: Consulting Provider: Gene Hector Consulting Physician: Gene Hector Reason for Consult: ?appendicitis Time Spent in preparation of Discharge (in minutes): 45 Diagnosis - Discharge Diagnosis (1) Colitis Status: Acute Priority: Medium (2) Abdominal pain Status: Acute Priority: Medium Hospital Course - Lab Results Lab Results: Micro Results 09/04/18 21:00 Blood Blood Culture - Preliminary NO GROWTH AFTER 3 DAYS 09/04/18 20:08 Blood Blood Culture - Preliminary NO GROWTH AFTER 3 DAYS Most Recent Lab Values WBC 3.9 10^3/uL (4.5-11.0) L 09/07/18 08:10 RBC 5.11 10^6/uL (3.5-6.1) 09/07/18 08:10 Hgb 11.6 g/dL (14.0-18.0) L 09/07/18 08:10 Hct 35.8 % (42.0-52.0) L 09/07/18 08:10 MCV 70.1 fl (80.0-105.0) L 09/07/18 08:10 MCH 22.7 pg (25.0-35.0) L 09/07/18 08:10 MCHC 32.4 g/dl (31.0-37.0) 09/07/18 08:10 RDW 14.0 % (11.5-14.5) 09/07/18 08:10 Plt Count 226 10^3/uL (120.0-450.0) 09/07/18 08:10 MPV 10.2 fl (7.0-11.0) 09/07/18 08:10 Neut % (Auto) 53.5 % (50.0-68.0) 09/07/18 08:10 Lymph % (Auto) 27.5 % (22.0-35.0) 09/07/18 08:10 Nolan % (Auto) 11.8 % (1.0-6.0) H 09/07/18 08:10 Eos % (Auto) 6.7 % (1.5-5.0) H 09/07/18 08:10 Baso % (Auto) 0.5 % (0.0-3.0) 09/07/18 08:10 Lymph # (Auto) 1.1 (1.2-3.4) L 09/07/18 08:10 Nolan # (Auto) 0.5 (0.1-0.6) 09/07/18 08:10 Eos # (Auto) 0.3 (0.0-0.7) 09/07/18 08:10 Baso # (Auto) 0.02 K/mm3 (0.0-2.0) 09/07/18 08:10 Absolute Neuts (auto) 2.08 (1.4-6.5) 09/07/18 08:10 ESR 28 mm/hr (0.0-15.0) H 09/04/18 20:08 Sickle Cell Screen Positive (Negative) H 09/06/18 07:00 Hemoglobinopathy Red Blood Count 5.11 Mill/mcL (4.20-5.80) 09/06/18 07:00 Hemoglobinopathy Hct 37.1 % (38.5-50.0) L 09/06/18 07:00 Hemoglobinopathy Hgb 11.9 g/dL (13.2-17.1) L 09/06/18 07:00 Hemoglobinopathy MCV 72.6 fL (80.0-100.0) L 09/06/18 07:00 Hemoglobinopathy MCH 23.3 pg (27.0-33.0) L 09/06/18 07:00 Hemoglobinopathy RDW 14.9 % (11.0-15.0) 09/06/18 07:00 PT 14.6 SECONDS (9.4-12.5) H 09/05/18 07:00 INR 1.29 09/05/18 07:00 APTT 29.8 Seconds (26.9-38.3) 09/05/18 07:00 Sodium 140 mmol/L (132-148) 09/07/18 08:10 Potassium 4.9 mmol/L (3.6-5.0) 09/07/18 08:10 Chloride 105 mmol/L (98-107) 09/07/18 08:10 Carbon Dioxide 29 mmol/L (21-33) 09/07/18 08:10 Anion Gap 10 (10-20) 09/07/18 08:10 BUN 11 mg/dL (7-21) 09/07/18 08:10 Creatinine 0.9 mg/dl (0.8-1.5) 09/07/18 08:10 Est GFR ( Amer) > 60 09/07/18 08:10 Est GFR (Non-Af Amer) > 60 09/07/18 08:10 Random Glucose 88 mg/dL (70-110) 09/07/18 08:10 Calcium 9.1 mg/dL (8.4-10.5) 09/07/18 08:10 Phosphorus 3.4 mg/dL (2.5-4.5) 09/07/18 08:10 Magnesium 1.9 mg/dL (1.7-2.2) 09/07/18 08:10 Iron 96 ug/dL (45-180) 09/06/18 07:00 TIBC 289 ug/dL (261-462) 09/06/18 07:00 % Saturation 33 % (20-55) 09/06/18 07:00 Erythropoietin 18.1 mIU/mL (2.6-18.5) 09/06/18 07:00 Ferritin 89.3 ng/mL 09/06/18 07:00 Total Bilirubin 1.0 mg/dL (0.2-1.3) 09/07/18 08:10 Direct Bilirubin 0.2 mg/dL (0.0-0.4) 09/07/18 08:10 AST 16 U/L (17-59) L D 09/07/18 08:10 ALT 11 U/L (7-56) 09/07/18 08:10 Alkaline Phosphatase 33 U/L (38-126) L 09/07/18 08:10 C-Reactive Protein 84.70 mg/L (0.0-9.9) H 09/05/18 07:00 Total Protein 7.5 g/dL (5.8-8.3) 09/07/18 08:10 Albumin 3.8 g/dL (3.0-4.8) 09/07/18 08:10 Globulin 3.6 gm/dL 09/07/18 08:10 Albumin/Globulin Ratio 1.1 (1.1-1.8) 09/07/18 08:10 Lipase 66 U/L (23-300) 09/04/18 20:08 Urine Color Yellow (YELLOW) 09/04/18 23:02 Urine Appearance Clear (CLEAR) 09/04/18 23:02 Urine pH 7.5 (4.7-8.0) 09/04/18 23:02 Ur Specific [place] <= 1.005 (1.005-1.035) 09/04/18 23:02 Urine Protein Negative mg/dL (<30 mg/dL) 09/04/18 23:02 Urine Glucose (UA) Negative mg/dL (NEGATIVE) 09/04/18 23:02 Urine Ketones Negative mg/dL (NEGATIVE) 09/04/18 23:02 Urine Blood Moderate (NEGATIVE) H 09/04/18 23:02 Urine Nitrate Negative (NEGATIVE) 09/04/18 23:02 Urine Bilirubin Negative (NEGATIVE) 09/04/18 23:02 Urine Urobilinogen 1.0 E.U./dL (<1 E.U./dL) H 09/04/18 23:02 Ur Leukocyte Esterase Negative Johnathan/uL (NEGATIVE) 09/04/18 23:02 Urine RBC 5 - 10 /hpf (0-2) H 09/04/18 23:02 Urine WBC 0 - 2 /hpf (0-6) 09/04/18 23:02 Ur Epithelial Cells 0 - 2 /hpf (0-5) 09/04/18 23:02 Urine Bacteria Few /hpf (NONE) 09/04/18 23:02 Opiates (GC/MS) negative 09/06/18 07:00 Urine Opiates Screen Negative (NEGATIVE) 09/05/18 21:55 Ur Opiates (GC/MS) Negative 300 (Negative) 09/05/18 21:55 Methadone (GC/MS) negative 09/06/18 07:00 Urine Methadone Screen Negative (NEGATIVE) 09/05/18 21:55 Ur Methadone, Qual Negative 300 (Negative) 09/05/18 21:55 Propoxyphenes negative 09/06/18 07:00 Urine Propoxyphene Negative 300 (Negative) 09/05/18 21:55 Methaqualone Negative 300 (Negative) 09/05/18 21:55 Barbiturates negative 09/06/18 07:00 Ur Barbiturates Screen Negative (NEGATIVE) 09/05/18 21:55 Ur Barbiturates, Qual Negative 300 (Negative) 09/05/18 21:55 Phencyclidine (PCP) negative 09/06/18 07:00 Ur Phencyclidine Scrn Negative (NEGATIVE) 09/05/18 21:55 Ur Phencyclidine (PCP) Negative 25 (Negative) 09/05/18 21:55 Amphetamines negative 09/06/18 07:00 Ur Amphetamines Screen Negative 1000 (Negative) 09/05/18 21:55 Benzodiazepines negative 09/06/18 07:00 U Benzodiazepines Scrn Negative (NEGATIVE) 09/05/18 21:55 U Benzodiazepines Qual Negative 300 (Negative) 09/05/18 21:55 Cocaine & Metabolite negative 09/06/18 07:00 Urine Cocaine Negative 300 (Negative) 09/05/18 21:55 U Oth Cocaine Metabols Negative (NEGATIVE) 09/05/18 21:55 U Cannabinoids Screen Negative (NEGATIVE) 09/05/18 21:55 Marijuana negative 09/06/18 07:00 U Marijuana (THC) Screen Negative 50 (Negative) 09/05/18 21:55 Drugs of Abuse Note See note 09/05/18 21:55 Drugs of Abuse Comment See note 09/06/18 07:00 Hepatitis A IgM Ab Negative (NEGATIVE) 09/06/18 07:00 Hep Bs Antigen Negative (NEGATIVE) 09/06/18 07:00 Hep B Core IgM Ab Negative (NEGATIVE) 09/06/18 07:00 Hepatitis C Antibody Negative (NEGATIVE) 09/06/18 07:00 - Hospital Course Hospital Course: Patient is a 27 year old male with no past medical history who was admitted for evaluation and treatment of lower right quadrant abdominal pain. With the use of physical examinations, lab work, and imaging the patient was diagnosed with and treated for colitis of the ascending colon. During their hospital stay the patient was seen by GI (Dr. Ariza) and general surgery (Dr. Hector) whose recommendations were both appreciated and utilized in the care for this patient. Dr. Ariza suspected that the patient is experiencing self-limited colitis and recommends discharge to home with an outpatient follow up and elective colonoscopy. Dr. Hector determined no surgical intervention was required at this time. During their hospital stay the patient underwent a CT Abdomen and Pelvis without IV contrast and abdominal ultrasound which were reviewed, appreciated, and utilized in the management of the patients clinical course. The CT revealed findings consistent with a severe colitis involving the right colon. Abdominal ultrasound revealed an echogenic liver in the setting of hepatic parenchymal disease and/or fatty infiltration. Patient was treated with flagyl, zosyn, morphine, calamine lotion, amongst other empiric/therapeutic medications. At this time the patient is medically stable for discharge. Patient understands and appreciates discharge plan. Patient instructed to follow up with primary care physicians and referrals within three to five days from discharge. Furthermore, the patient is instructed to take medications as prescribed and to return to emergency room for evaluation of new or worsening symptoms including but not limited to intractable headache, fever, chills, dizziness, chest pain, shortness of breath, abdominal pain, nausea, vomiting, diarrhea, constipation, and urinary symptoms. This is a brief summary of the patients hospital course. Please see patient chart for full details. Discharge Exam - Additional Findings Additional findings: - Constitutional Appears: Well, No Acute Distress - Head Exam Head Exam: ATRAUMATIC, NORMAL INSPECTION, NORMOCEPHALIC - Eye Exam Eye Exam: EOMI, Normal appearance - ENT Exam ENT Exam: Mucous Membranes Moist, Normal Exam. absent: Mucous Membranes Dry - Neck Exam Neck exam: Positive for: Full Rom, Normal Inspection. Negative for: Tenderness - Respiratory Exam Respiratory Exam: Clear to Auscultation Bilateral, NORMAL BREATHING PATTERN. absent: Accessory Muscle Use, Chest Wall Tenderness, Decreased Breath Sounds, Rales, Rhonchi, Wheezes, Respiratory Distress - Cardiovascular Exam Cardiovascular Exam: REGULAR RHYTHM, RRR, +S1, +S2. absent: Bradycardia, Tachyc ardia, Diastolic murmur, Systolic Murmur - GI/Abdominal Exam GI & Abdominal Exam: Normal Bowel Sounds, Soft absent: Distended, Firm, Hernia, Mass, Organomegaly, Rebound - Extremities Exam Extremities exam: Positive for: full ROM, normal inspection. Negative for: calf tenderness, pedal edema, tenderness - Back Exam Back exam: NORMAL INSPECTION. absent: CVA tenderness (L), CVA tenderness (R), paraspinal tenderness, vertebral tenderness - Neurological Exam Neurological exam: Alert, CN II-XII Intact, Oriented x3 - Psychiatric Exam Psychiatric exam: Normal Affect, Normal Mood - Skin Skin Exam: Dry, Intact Discharge Plan - Discharge Medications Prescriptions: Calamine/Zinc Oxide [Calamine Lotion] 1 bottle TOP DAILY #1 bottle Ciprofloxacin [Cipro] 500 mg PO BID #14 tab Metronidazole [Flagyl] 500 mg PO TID #21 tablet - Follow Up Plan Condition: STABLE Disposition: HOME/ ROUTINE Instructions: Smoking: Not Just Harmful to Your Lungs and Heart, Colitis, Flu, Adult (DC), Acute Abdomen (Belly Pain), Adult (DC) Additional Instructions: MAY DISCHARGE AFTER CLEARED BY GASTROENTEROLOGY FOLLOW UP: DR.HAQUE MENDENHALL WITHIN 1 WEEK STOP SMOKING STOP RECREATIONAL DRUG USE STOP ALCOHOL LOW RESIDUE DIET GIVE NEW SCRIPTS TO PATIENT UPON DISCHARGE. Referrals: Michael Airza MD [Staff Provider] - Sarath Quiroz MD [Staff Provider] -
--- NOTE | 2018-09-09 00:42 | DS ---
FINAL PROGRESS NOTE AND DISCHARGE SUMMARY SUBJECTIVE: The patient is seen in room 568, bed 2 now. The patient has been moved out of 566, bed 1 to 568, bed 2. The patient has been tolerating the diet, which has been ordered by the Gastroenterology. The patient denies any increased or recurrent abdominal pain. The patient denies any nausea, vomiting, or diarrhea. Overnight nurse's notes were reviewed. No adverse events were documented, notified or called for. PHYSICAL EXAMINATION: VITAL SIGNS: The patient is afebrile, heart rate 76, 68, and 74, blood pressure is 112/78 and 118/70, respirations 18 to 20, and O2 sat 97% to 98%. HEENT: Head examination; normocephalic and atraumatic. HEENT examination shows pinkish conjunctivae. Anicteric sclerae. No oropharyngeal lesion. NECK: No neck rigidity. CHEST: Kyphosis. LUNGS: Shows no audible crackle, rales or wheezing. CARDIOVASCULAR: S1 and S2, regular rhythm. ABDOMEN: Soft. Positive bowel sounds. No palpable hepatosplenomegaly significantly resolved and almost no right lower quadrant tenderness, no right periumbilical tenderness, no right upper quadrant tenderness, and no right costovertebral angle tenderness. GENITALIA: Male. RECTAL: Deferred. EXTREMITIES: Shows no pitting edema. No calf tenderness. No Homans' sign. NEUROLOGIC: The patient is alert, awake, and oriented x3. Cranial nerves II through XII intact. Gait examination is independent. VASCULAR: Palpable pulses. FINAL IMPRESSION, PLAN, AND DISCHARGE DIAGNOSES: 1. Acute probably self-limiting right ascending colon and cecal colitis with mesenteric and pericecal adenopathy. 2. Leukopenia and microcytic anemia. 3. Positive sickle cell screen. 4. Microcytic anemia. 5. Questionable bed bug infestation. 6. Abdominal pain (resolved). 7. Right-sided ascending colon and cecal colitis, resolving. Plan at this time, the patient has been tolerating the diet and the patient has been evaluated by Gastroenterology and cleared for discharge. The patient will be cleared for discharge today. The patient will be discharged on calamine lotion to all the body areas. The patient was explained by the nursing staff and the hospital staff about bed bug, which was found on the patient's body and the precautionary measures and treatment measures and decontamination measures was explained to the patient. The patient's discharge medications are as per the ambulatory orders including ciprofloxacin 500 twice a day and Flagyl 500 three times a day for 7 days. Discharge follow up with Dr. Quiroz within 1 week. Discharge follow up with Dr. Michael Ariza within 1 week. The patient's diet was low residue diet. The patient was advised no smoking, no alcohol, and no recreational drug use. During this hospitalization, the patient was extensively explained about the details of his medical condition, diagnosis, and test results at length. All details were explained to the patient by me and the Gastroenterology in layman's language. All questions concerned answered. Time spent in the discharge process 45 minutes. Dictated and electronically signed, not read. Sarath Quiroz MD
[2018-09-09 13:19] LABS: HEMOGLOBIN A2 4.3 Percent (1.8-3.5); HEMOGLOBIN S 25.7 Percent (0.0-0.0)
== END 2018-09-08 14:36 | disposition home or self-care (01) | DRG 392 ==
LOC: ED 19:22 → ERH 22:27 → 5RNO 09-05 01:35 → OBSVTOIN 09-07 21:33
PROVIDERS: ADMIT Internal Medicine; ATTEND Internal Medicine
DX: K52.9 Noninfective gastroenteritis and colitis, unspecified (principal); R59.9 Enlarged lymph nodes, unspecified; B88.8 Other specified infestations; K76.0 Fatty (change of) liver, not elsewhere classified; D50.9 Iron deficiency anemia, unspecified; D72.810 Lymphocytopenia; D72.821 Monocytosis (symptomatic); R31.29 Other microscopic hematuria; Z82.49 Family history of ischemic heart disease and other diseases of the circulatory system; R79.82 Elevated C-reactive protein (CRP); R70.0 Elevated erythrocyte sedimentation rate; R82.71 Bacteriuria; T14.8XXA Other injury of unspecified body region, initial encounter; W57.XXXA Bitten or stung by nonvenomous insect and other nonvenomous arthropods, initial encounter